=== PATIENT | female | born 1995 | race American Indian/Alaskan Native ===

== ENCOUNTER 2020-03-21 00:27 | Emergency (ER) | payer SELFPAY ==
[2020-03-21 00:52] VITALS: BP 137/85
== END 2020-03-21 00:40 | disposition left against medical advice (07) ==
LOC: ED 00:27
DX: Z53.21 Procedure and treatment not carried out due to patient leaving prior to being seen by health care provider (principal)

== ENCOUNTER 2020-04-04 15:20 | Emergency (ER) | payer SELFPAY ==
[2020-04-04] MEDS ORDERED: SODIUM CHLORIDE 0.9% 1000 ML 1,000 ML IV ONE ×2 (16:11→17:36)
[2020-04-04] MEDS ORDERED: ZIPRASIDONE MESYLATE 20 MG VIAL IM ONE (16:11)
[2020-04-04 16:58] LABS: Basophils % (Auto) 0.9 % (0.0-1.8); Eosinophils % (Auto) 0.3 % (0.0-4.3); Hemoglobin 15.1 gm/dl (10.1-14.3); Lymphocytes # (Auto) 1.6 K/mm3 (1.2-5.4); Mean Corpuscular HGB Conc 34 % (30-34); Mean Corpuscular Volume 97 fl (79-97); Monocytes # (Auto) 0.3 K/mm3 (0.0-0.8); Monocytes % (Auto) 8.1 % (0.0-7.3); Platelet Count 219 K/mm3 (140-440); Red Blood Count 4.66 M/mm3 (3.65-5.03); Red Cell Distribution Width 13.3 % (13.2-15.2)
[2020-04-04 17:12] LABS: BUN/Creatinine Ratio 9; Blood Urea Nitrogen 9 mg/dL (7-17); Calcium 10.3 mg/dL (8.4-10.2); Hemolysis Index 20
[2020-04-04 17:16] LABS: Bilirubin,Urine NEG (Negative); Blood,Urine NEG (Negative); Color,Urine Amber (Yellow); Mucus,Urine 3+ /HPF
[2020-04-04 17:17] LABS: Protein,Urine >500 mg/dL (Negative)
[2020-04-04 17:18] LABS: Amphetamine Screen,Urine PRESUMPTIVE NEGATIVE; Benzodiazepines Screen,Urine PRESUMPTIVE NEGATIVE; Cannabinoid Screen,Urine PRESUMPTIVE POSITIVE; Cocaine Screen,Urine PRESUMPTIVE NEGATIVE; Methadone Screen,Urine PRESUMPTIVE NEGATIVE; Opiate Screen,Urine PRESUMPTIVE NEGATIVE
[2020-04-04] MEDS ORDERED: LORazepam 2 MG/ML VIAL IV ONE (17:18)
[2020-04-04] MEDS ORDERED: cefTRIAXone/NS 1 GM/50 ML 1 GM/50 ML BAG IV ONE (17:36)
--- NOTE | 2020-04-04 17:50 | Emergency Department Report ---
ED Psych HPI - General Chief Complaint: Psych Stated Complaint: ALTERED MENTAL STATUS Time Seen by Provider: 04/04/20 16:11 Source: family, EMS Mode of arrival: Ambulatory Limitations: Altered Mental Status - History of Present Illness Initial Comments: This is a 25-year-old female with history of schizophrenia who is not taking medication for several weeks. She has altered mental status. She is not as talkative. She appears to just stares off. She has not eaten in 2 weeks. Patient's male significant other provided history at the bedside. Patient has not had consistent psychiatric care in 3 years. Patient cooperates In limited fashion. Patient's boyfriend can only recall Haldol as one of her psychotropic medications. MD Complaint: altered mental status -: Gradual, week(s) (2 weeks) Associated Psychiatric Symptoms: other (Abnormal behavior) History of same: Yes Quality: constant Improves With: none Worsens With: none Context: not taking psychiatric Associated Symptoms: other (My eating) Treatments Prior to Arrival: none - Related Data Home Medications Medication Instructions Recorded Confirmed Last Taken No Known Home Medications [No 04/06/20 04/06/20 Unknown Reported Home Medications] Allergies Allergy/AdvReac Type Severity Reaction Status Date / Time No Known Allergies Allergy Verified 04/06/20 11:23 ED Review of Systems ROS: Stated complaint: ALTERED MENTAL STATUS Other details as noted in HPI Comment: Unobtainable due to pts medical conditions (Altered mental status) ED Past Medical Hx - Past Medical History Previous Medical History?: Yes Additional medical history: Schizophrenia - Social History Smoking Status: Current Every Day Smoker Substance Use Type: Marijuana - Medications Home Medications: Home Medications Medication Instructions Recorded Confirmed Last Taken Type No Known Home Medications [No 04/06/20 04/06/20 Unknown History Reported Home Medications] ED Physical Exam - General Limitations: Other General appearance: alert, in no apparent distress, other (Patient will cooperate but moves slowly, she appears dazed, she will make eye contact.) - Head Head exam: Present: atraumatic, normocephalic - Eye Eye exam: Present: normal appearance - ENT ENT exam: Present: mucous membranes dry, other (No facial swelling no gum swelling no purulence or exudate in oropharynx) - Neck Neck exam: Present: normal inspection, full ROM - Respiratory Respiratory exam: Present: normal lung sounds bilaterally. Absent: respiratory distress, wheezes, rales, rhonchi - Cardiovascular Cardiovascular Exam: Present: regular rate, normal rhythm, normal heart sounds. Absent: systolic murmur, diastolic murmur, rubs, gallop - GI/Abdominal GI/Abdominal exam: Present: soft, normal bowel sounds. Absent: distended, tenderness, guarding, rebound - Extremities Exam Extremities exam: Present: normal inspection - Neurological Exam Neurological exam: Present: alert, oriented X3 - Psychiatric Psychiatric exam: Present: normal affect, normal mood - Skin Skin exam: Present: warm, dry, intact, normal color. Absent: rash ED Course Vital Signs 04/04/20 04/04/20 04/04/20 17:31 19:33 19:58 Temperature 97.2 F L Pulse Rate 112 H Respiratory 18 20 16 Rate Blood Pressure Blood Pressure 142/97 [Left] O2 Sat by Pulse 99 99 100 Oximetry 04/05/20 04/05/20 04/05/20 02:00 10:43 19:16 Temperature 98.1 F 97.8 F 98.0 F Pulse Rate 79 80 106 H Respiratory 15 20 18 Rate Blood Pressure 122/92 Blood Pressure 137/89 125/83 [Left] O2 Sat by Pulse 99 100 100 Oximetry 04/05/20 04/06/20 04/06/20 22:00 07:33 08:45 Temperature 97.5 F L Pulse Rate 98 H Respiratory 20 18 18 Rate Blood Pressure Blood Pressure 122/74 [Left] O2 Sat by Pulse 100 100 98 Oximetry 04/06/20 04/06/20 04/07/20 19:30 20:00 02:03 Temperature 98.7 F 97.6 F Pulse Rate 89 96 H Respiratory 18 16 18 Rate Blood Pressure Blood Pressure 135/94 109/78 [Left] O2 Sat by Pulse 98 99 99 Oximetry 04/07/20 04/07/20 04/08/20 08:31 19:36 02:25 Temperature 98.6 F 98.7 F 97.5 F L Pulse Rate 90 99 H 84 Respiratory 20 18 16 Rate Blood Pressure Blood Pressure 120/83 128/92 119/77 [Left] O2 Sat by Pulse 100 100 98 Oximetry 04/08/20 08:18 Temperature 98.3 F Pulse Rate 65 Respiratory 20 Rate Blood Pressure Blood Pressure 134/83 [Left] O2 Sat by Pulse 97 Oximetry ED Medical Decision Making - Lab Data Result diagrams: 04/04/20 16:41 04/04/20 16:41 Laboratory Results - last 24 hr 04/04/20 04/04/20 04/04/20 16:41 16:41 16:41 WBC 4.0 L RBC 4.66 Hgb 15.1 H Hct 45.0 H MCV 97 MCH 33 H MCHC 34 RDW 13.3 Plt Count 219 Lymph % (Auto) 39.0 H Mayes % (Auto) 8.1 H Eos % (Auto) 0.3 Baso % (Auto) 0.9 Lymph # (Auto) 1.6 Mayes # (Auto) 0.3 Eos # (Auto) 0.0 Baso # (Auto) 0.0 Seg Neutrophils % 51.7 Seg Neutrophils # 2.1 Sodium 139 Potassium 4.6 Chloride 97.2 L Carbon Dioxide 21 L Anion Gap 25 BUN 9 Creatinine 1.0 Estimated GFR > 60 BUN/Creatinine Ratio 9 Glucose 114 H Calcium 10.3 H TSH 1.540 HCG, Qual Urine Color Urine Turbidity Urine pH Ur Specific Preemption Urine Protein Urine Glucose (UA) Urine Ketones Urine Blood Urine Nitrite Urine Bilirubin Urine Urobilinogen Ur Leukocyte Esterase Urine WBC (Auto) Urine RBC (Auto) U Epithel Cells (Auto) Urine Mucus Salicylates Urine Opiates Screen Urine Methadone Screen Acetaminophen Ur Barbiturates Screen Ur Phencyclidine Scrn Ur Amphetamines Screen U Benzodiazepines Scrn Urine Cocaine Screen U Marijuana (THC) Screen Plasma/Serum Alcohol 04/04/20 04/04/20 04/04/20 16:41 16:41 16:41 WBC RBC Hgb Hct MCV MCH MCHC RDW Plt Count Lymph % (Auto) Mayes % (Auto) Eos % (Auto) Baso % (Auto) Lymph # (Auto) Mayes # (Auto) Eos # (Auto) Baso # (Auto) Seg Neutrophils % Seg Neutrophils # Sodium Potassium Chloride Carbon Dioxide Anion Gap BUN Creatinine Estimated GFR BUN/Creatinine Ratio Glucose Calcium TSH HCG, Qual Urine Color Urine Turbidity Urine pH Ur Specific Preemption Urine Protein Urine Glucose (UA) Urine Ketones Urine Blood Urine Nitrite Urine Bilirubin Urine Urobilinogen Ur Leukocyte Esterase Urine WBC (Auto) Urine RBC (Auto) U Epithel Cells (Auto) Urine Mucus Salicylates < 0.3 L Urine Opiates Screen Urine Methadone Screen Acetaminophen 5.0 L Ur Barbiturates Screen Ur Phencyclidine Scrn Ur Amphetamines Screen U Benzodiazepines Scrn Urine Cocaine Screen U Marijuana (THC) Screen Plasma/Serum Alcohol < 0.01 04/04/20 04/04/20 04/04/20 16:41 16:51 Unknown WBC RBC Hgb Hct MCV MCH MCHC RDW Plt Count Lymph % (Auto) Mayes % (Auto) Eos % (Auto) Baso % (Auto) Lymph # (Auto) Mayes # (Auto) Eos # (Auto) Baso # (Auto) Seg Neutrophils % Seg Neutrophils # Sodium Potassium Chloride Carbon Dioxide Anion Gap BUN Creatinine Estimated GFR BUN/Creatinine Ratio Glucose Calcium TSH HCG, Qual Negative Urine Color Betty Urine Turbidity Cloudy Urine pH 5.0 Ur Specific Preemption 1.025 Urine Protein >500 Urine Glucose (UA) Neg Urine Ketones 20 Urine Blood Neg Urine Nitrite Neg Urine Bilirubin Neg Urine Urobilinogen 2.0 Ur Leukocyte Esterase Mod Urine WBC (Auto) 88.0 H Urine RBC (Auto) 31.0 U Epithel Cells (Auto) 37.0 H Urine Mucus 3+ Salicylates Urine Opiates Screen Presumptive negative Urine Methadone Screen Presumptive negative Acetaminophen Ur Barbiturates Screen Presumptive negative Ur Phencyclidine Scrn Presumptive negative Ur Amphetamines Screen Presumptive negative U Benzodiazepines Scrn Presumptive negative Urine Cocaine Screen Presumptive negative U Marijuana (THC) Screen Presumptive positive Plasma/Serum Alcohol - EKG Data EKG shows normal: sinus rhythm, axis, intervals Rate: tachycardia - EKG Data 04/04/20 17:58 EKG obtained 1633 EKG interpreted by al Sinus tachycardia rate 110 bpm normal axis normal QTC no ST elevation diffuse T wave flattening - Medical Decision Making This is a 25-year-old female with history of schizophrenia noncompliant with medical occasion. She is exhibiting acute psychosis paranoia with response to internal stimuli. She has poor insight. She is a potential risk of further harm to herself. She has not eaten. Tachycardia attributed to agitation and dehydration. She received IV fluid therapy. I reviewed work-up CBC chemistry within normal limits. Serum toxicology within normal limits. UDS positive for marijuana. Urinalysis does not reflect UTI. It does reflect contamination with white cells and RBCs as well as epithelial cells. With the absence of bacteria or detections of nitrites, antibiotic therapy is not warranted. Patient is medically clear for psychiatric care. Patient has been placed on 1013 involuntary hold. EKG obtained to confirm normal rhythm. Critical care attestation.: If time is entered above; I have spent that time in minutes in the direct care of this critically ill patient, excluding procedure time. ED Disposition Clinical Impression: Acute psychosis, Schizophrenia, Dehydration Disposition: [id number] PSY HOSP/PSY UNIT Is pt being admited?: No Does the pt Need Aspirin: No Condition: Stable
--- NOTE | 2020-04-06 10:52 | Consultation ---
History of Present Illness - Reason for Consult Consult date: 04/06/20 Reason for consult: not eating, or talking - History of Present Psychiatric Illness I attempted to interview the patient this morning, she is sitting up in bed. She is staring intensely. Her affect is restricted. The patient is selectively mute. She answers some questions by nodding or shaking her head, others, she only stares and gives no response. When asking the patient what brought her into the hospital, she just gave at me. When asking the patient could she speak, she nodded her head "yes." When asking her was she depressed, she nodded "yes." When asking the patient was she suicidal, she shook her head "no." The patient was then asked was she having any fear of dying, she nodded "yes." The patient shook her head, "no" when asked about hallucinations of any kind. PSYCHIATRIC HISTORY The patient is not speaking SOCIAL HISTORY The patient is not speaking REVIEW OF SYSTEMS The patient is not speaking MENTAL STATUS EXAMINATION The patient is not speaking Assessment Schizoaffective Disorder Noncompliance with medical regimen and other treatments Failure of outpatient stabilization Plan Start Risperidone 0.25mg po BID Start Depakote DR 125mg po BID Start Trazodone 50mg po qhs Start Melatonin 5mg po qhs prn insomnia Start Klonopin 0.25mg po BID prn anxiety Sitter: Defer to primary Medical: Per primary Disposition: Recommend acute inpatient treatment Will follow. Thank you for this consult. Medications and Allergies Allergies Allergy/AdvReac Type Severity Reaction Status Date / Time No Known Allergies Allergy Verified 04/04/20 15:59 Mental Status Exam - Vital signs Last Vital Signs Temp 97.5 F L 04/06/20 08:45 Pulse 98 H 04/06/20 08:45 Resp 18 04/06/20 08:45 BP 122/74 04/06/20 08:45 Pulse Ox 98 04/06/20 08:45 Results Result Diagrams: 04/04/20 16:41 04/04/20 16:41 All other labs normal.
[2020-04-06] MEDS ORDERED: MELATONIN 5 MG TAB PO PRN (10:53)
[2020-04-06] MEDS ORDERED: clonazePAM 0.5 MG TAB PO PRN (10:54)
[2020-04-06] MEDS: risperiDONE 0.25 MG TAB PO SCH ×2 (11:22→23:29)
[2020-04-06] MEDS: DIVALPROEX DR 125 MG TAB PO SCH ×2 (12:14→23:28)
[2020-04-06] MEDS ORDERED: traZODone 50 MG TAB PO SCH (22:00)
[2020-04-06] MEDS ORDERED: traZODone 100 MG TAB PO ONE (23:15)
[2020-04-06] MEDS: traZODone 100 MG TAB PO SCH (23:31)
--- NOTE | 2020-04-07 07:49 | Progress Note ---
Subjective - Reason for Consult Consult date: 04/07/20 Reason for consult: MHE Requesting physician: ARIC HIDALGO - Chief Complaint Chief complaint: PSYCH HPI Patient seen this a.m. reported she is here because she needs medication for anxiety, ask what she is anxious about patient said because she worries a lot about nothing. Patient reports she had the [employer] take away her children because the child was found initially unresponsive and patient was laughing about this while talking about it. Patient started laughing hysterically without any known trigger patient says she because she is just happy, sometimes she is sad and she does not know why. REVIEW OF SYSTEMS Constitutional: Negative for weight loss ENT: Negative for stridor Respiratory: Negative for cough or hemoptysis All other systems reviewed and are negative MENTAL STATUS EXAMINATION General Appearance and Behavior: Age appropriate, fair good hygiene, wearing appropriate clothes, good eye contact, cooperative polite with questioning. Cooperation: Participating/engaged Psychomotor Behavior: unremarkable and within normal limits Mood: Good, Affect and affective range: euphoric, Thought Process: Illogical, Thought Content: Illogical, Speech: Normal volume, Regular rate and rhythm Intellectual Functioning: fair Suicidal Ideation: Denies SI Homicidal Ideation: Denies HI Impulse Control: Impaired Insight and Judgment: Impaired Memory: Short term memory intact Attention: Normal, Orientation: Alert, oriented, Diagnoses: Assessment and Plan - Patient Problems (1) Schizophrenia Current Visit: Yes Status: Acute Treatment Plan MEDICATIONS: Started on Olanzapine Risks, benefits and alternatives of medications discussed with the patient, questions answered and consent obtained from patient. PSYCHOTHERAPY: Supportive psychotherapy provided MEDICAL: Per primary team DELIRIUM PRECAUTIONS: Please re-orient patient frequently, keep lights on during the day, and minimize benzodiazepines and opiates as these medications could worsen patient's confusion. MA[employer]ACHT: DISPOSITION: Do Recommend acute inpatient psychiatric hospitalization at this time LEGAL STATUS: 1013 FOLLOW-UP: Will follow Thank you for the consult. Please contact with any questions and/or concerns. Mental Status Exam - Vital signs Last Vital Signs Temp 97.6 F 04/07/20 02:03 Pulse 96 H 04/07/20 02:03 Resp 18 04/07/20 02:03 BP 109/78 04/07/20 02:03 Pulse Ox 99 04/07/20 02:03 Assessment and Plan - Patient Problems (1) Schizophrenia Current Visit: Yes Status: Acute
[2020-04-07] MEDS: risperiDONE 0.25 MG TAB PO SCH (11:14)
[2020-04-07] MEDS: DIVALPROEX DR 125 MG TAB PO SCH ×2 (11:51→21:50)
[2020-04-07] MEDS: traZODone 100 MG TAB PO SCH (21:49)
[2020-04-08 08:19] VITALS: BP 134/83
[2020-04-08] MEDS: DIVALPROEX DR 125 MG TAB PO SCH (11:00)
[2020-04-08] MEDS ORDERED: DIVALPROEX DR 125 MG TAB PO SCH (11:25)
--- NOTE | 2020-04-08 11:25 | Progress Note ---
Subjective - Reason for Consult Consult date: 04/08/20 Reason for consult: MHE Requesting physician: ARIC HIDALGO - Chief Complaint Chief complaint: PSYCH HPI Patient seen this a.m. in room laying, refuses to get up or sit up to talk to me as she was laying down upside down. Patient appears very slow in response, endorses wanting to go back home to family, asked which family and patient never responded REVIEW OF SYSTEMS Constitutional: Negative for weight loss ENT: Negative for stridor Respiratory: Negative for cough or hemoptysis All other systems reviewed and are negative MENTAL STATUS EXAMINATION General Appearance and Behavior: Age appropriate, fair good hygiene, wearing appropriate clothes, good eye contact, cooperative polite with questioning. Cooperation: Participating/engaged Psychomotor Behavior: unremarkable and within normal limits Mood: Good, Affect and affective range: euphoric, Thought Process: Illogical, Thought Content: Illogical, Speech: Normal volume, Regular rate and rhythm Intellectual Functioning: fair Suicidal Ideation: Denies SI Homicidal Ideation: Denies HI Impulse Control: Impaired Insight and Judgment: Impaired Memory: Short term memory intact Attention: Normal, Orientation: Alert, oriented, Diagnoses: Assessment and Plan - Patient Problems (1) Schizophrenia Current Visit: Yes Status: Acute Treatment Plan MEDICATIONS: Started on Olanzapine Risks, benefits and alternatives of medications discussed with the patient, questions answered and consent obtained from patient. PSYCHOTHERAPY: Supportive psychotherapy provided MEDICAL: Per primary team DELIRIUM PRECAUTIONS: Please re-orient patient frequently, keep lights on during the day, and minimize benzodiazepines and opiates as these medications could worsen patient's confusion. TAX SERVICES SPECIALIST: DISPOSITION: Do Recommend acute inpatient psychiatric hospitalization at this time LEGAL STATUS: 1013 FOLLOW-UP: Will follow Thank you for the consult. Please contact with any questions and/or concerns. Mental Status Exam - Vital signs Last Vital Signs Temp 98.3 F 04/08/20 08:18 Pulse 65 04/08/20 08:18 Resp 20 04/08/20 08:18 BP 134/83 04/08/20 08:18 Pulse Ox 97 04/08/20 08:18 Assessment and Plan - Patient Problems (1) Schizophrenia Status: Acute
== END 2020-04-08 15:33 ==
LOC: ED 15:20
DX: F20.89 Other schizophrenia (principal); F23 Brief psychotic disorder; F17.200 Nicotine dependence, unspecified, uncomplicated; F12.10 Cannabis abuse, uncomplicated
CPT/HCPCS: 36415; 80048; 80307; 81001; 84443; 84703; 85025; 87086; 93005; 96361; 96372; 96374; 99285; J2060; J3486; J7030; Q0177; 80320; G0480

== ENCOUNTER 2020-05-03 07:08 | Emergency (ER) | payer MEDICAID | END 2020-05-03 07:45 | disposition left against medical advice (07) | LOC: ED 07:08 | DX: Z76.0 Encounter for issue of repeat prescription (principal); Z53.21 Procedure and treatment not carried out due to patient leaving prior to being seen by health care provider ==

== ENCOUNTER 2021-01-16 11:06 | Emergency (ER) | payer MEDICAID ==
[2021-01-23 04:52] VITALS: BP 123/75
== END 2021-01-23 17:00 | disposition home or self-care (01) ==
LOC: EEVIPCON 11:06 → ED 11:06
DX: F20.9 Schizophrenia, unspecified (principal); Z03.818 Encounter for observation for suspected exposure to other biological agents ruled out; R82.81 Pyuria; F17.200 Nicotine dependence, unspecified, uncomplicated; F12.10 Cannabis abuse, uncomplicated
CPT/HCPCS: 36415; 80048; 80076; 80307; 81001; 84703; 85007; 85025; 87086; 96372; 99284; J1630; J2060; U0003; 80320; G0480

== ENCOUNTER 2021-04-19 08:57 | Emergency (ER) | payer MEDICAID ==
--- NOTE | 2021-04-19 09:23 | Emergency Department Report ---
HPI - General Chief Complaint: Anxiety Time Seen by Provider: 04/19/21 09:06 - HPI HPI: 25-year-old -Finnish female presents to the emergency department via EMS for a mental health evaluation. The patient has a history of schizophrenia and was seen here about 3 months ago with acute psychosis and mutism. The patient says that she came into the emergency department today due to some anxiety and after having "a fight with my boyfriend." Some of her story does not make sense as she says that the boyfriend called for EMS and that her aunt told him to do so. She says that the aunt came to see her when she called her after the argument. However the patient also says that she is homeless and slept in a car with her boyfriend last night and that her home is in [place]. However the patient denies any suicidal or homicidal ideations or any hallucinations. She is oriented, AAO x3, to person, place, time. She denies any physical co mplaints at this time. ED Past Medical Hx - Past Medical History Previous Medical History?: Yes Hx Psychiatric Treatment: Yes (schizophrenia) Additional medical history: Schizophrenia - Social History Smoking Status: Current Every Day Smoker Substance Use Type: Alcohol, Marijuana - Medications Home Medications: Home Medications Medication Instructions Recorded Confirmed Last Taken Type Benztropine [Cogentin] 0.5 mg PO BID #60 tab 01/23/21 04/19/[address] [Charity COHEN] 500 mg PO BID #60 tablet 01/23/21 04/19/21 Unknown Rx haloperidoL [Haldol] 1 mg PO BID #60 tablet 01/23/21 04/19/21 Unknown Rx traZODone [Desyrel] 50 mg PO QHS #30 tab 01/23/21 04/19/21 Unknown Rx haloperidoL [Haldol] 5 mg PO BID #60 tablet 04/19/21 Unknown Rx ED Review of Systems ROS: Stated complaint: PSYCH EVAL Other details as noted in HPI Comment: All other systems reviewed and negative Constitutional: denies: chills, fever Eyes: denies: eye pain, vision change ENT: denies: ear pain, throat pain Respiratory: denies: cough, shortness of breath Cardiovascular: denies: chest pain, palpitations Gastrointestinal: denies: abdominal pain, vomiting Genitourinary: denies: dysuria, discharge Musculoskeletal: denies: back pain, arthralgia Neurological: denies: headache, weakness Psychiatric: denies: auditory hallucinations, visual hallucinations, homicidal thoughts, suicidal thoughts Physical Exam - Physical Exam Physical Exam: GENERAL: The patient is well-developed well-nourished. HENT: Normocephalic. Atraumatic. Patient has moist mucous membranes. EYES: Extraocular motions are intact. NECK: Supple. Trachea is midline. CHEST/LUNGS: Clear to auscultation. There is no respiratory distress noted. HEART/CARDIOVASCULAR: Regular. There is no tachycardia. There is no murmur. ABDOMEN: Abdomen is soft, nontender. Patient has normal bowel sounds. SKIN: Skin is warm and dry. NEURO: The patient is awake, alert, and cooperative. The patient has no focal neurologic deficits. Normal speech. MUSCULOSKELETAL: There is no tenderness or deformity. There is no limitation range of motion. ED Medical Decision Making - Lab Data Result diagrams: 04/19/21 09:54 04/19/21 09:54 Lab Results 04/19/21 04/19/21 04/19/21 Range/Units 09:54 09:54 09:54 WBC 3.7 L (4.5-11.0) K/mm3 RBC 4.70 (3.65-5.03) M/mm3 Hgb 14.8 H (10.1-14.3) gm/dl Hct 44.4 H (30.3-42.9) % MCV 95 (79-97) fl MCH 32 (28-32) pg MCHC 33 (30-34) % RDW 13.2 (13.2-15.2) % Plt Count 283 (140-440) K/mm3 Lymph % (Auto) 48.3 H (13.4-35.0) % [place] % (Auto) 10.4 H (0.0-7.3) % Eos % (Auto) 1.3 (0.0-4.3) % Baso % (Auto) 0.7 (0.0-1.8) % Lymph # (Auto) 1.8 (1.2-5.4) K/mm3 [place] # (Auto) 0.4 (0.0-0.8) K/mm3 Eos # (Auto) 0.0 (0.0-0.4) K/mm3 Baso # (Auto) 0.0 (0.0-0.1) K/mm3 Seg Neutrophils % 39.3 L (40.0-70.0) % Seg Neutrophils # 1.5 L (1.8-7.7) K/mm3 Sodium 137 (137-145) mmol/L Potassium 4.6 (3.6-5.0) mmol/L Chloride 100.3 (98-107) mmol/L Carbon Dioxide 27 (22-30) mmol/L Anion Gap 14 mmol/L BUN 7 (7-17) mg/dL Creatinine 0.7 (0.6-1.2) mg/dL Estimated GFR > 60 ml/min BUN/Creatinine Ratio 10 % Glucose 88 (65-100) mg/dL Calcium 9.5 (8.4-10.2) mg/dL Urine Color (Yellow) Urine Turbidity (Clear) Urine pH (5.0-7.0) Ur Specific [place] (1.003-1.030) Urine Protein (Negative) mg/dL Urine Glucose (UA) (Negative) mg/dL Urine Ketones (Negative) mg/dL Urine Blood (Negative) Urine Nitrite (Negative) Urine Bilirubin (Negative) Urine Urobilinogen (<2.0) mg/dL Ur Leukocyte Esterase (Negative) Urine WBC (Auto) (0.0-6.0) /HPF Urine RBC (Auto) (0.0-6.0) /HPF U Epithel Cells (Auto) (0-13.0) /HPF Urine Bacteria (Auto) (Negative) /HPF Urine Mucus /HPF Urine Opiates Screen Urine Methadone Screen Ur Barbiturates Screen Ur Phencyclidine Scrn Ur Amphetamines Screen U Benzodiazepines Scrn Urine Cocaine Screen U Marijuana (THC) Screen Drugs of Abuse Note Plasma/Serum Alcohol < 0.01 (0-0.07) % 04/19/21 04/19/21 Range/Units Unknown Unknown WBC (4.5-11.0) K/mm3 RBC (3.65-5.03) M/mm3 Hgb (10.1-14.3) gm/dl Hct (30.3-42.9) % MCV (79-97) fl MCH (28-32) pg MCHC (30-34) % RDW (13.2-15.2) % Plt Count (140-440) K/mm3 Lymph % (Auto) (13.4-35.0) % [place] % (Auto) (0.0-7.3) % Eos % (Auto) (0.0-4.3) % Baso % (Auto) (0.0-1.8) % Lymph # (Auto) (1.2-5.4) K/mm3 [place] # (Auto) (0.0-0.8) K/mm3 Eos # (Auto) (0.0-0.4) K/mm3 Baso # (Auto) (0.0-0.1) K/mm3 Seg Neutrophils % (40.0-70.0) % Seg Neutrophils # (1.8-7.7) K/mm3 Sodium (137-145) mmol/L Potassium (3.6-5.0) mmol/L Chloride (98-107) mmol/L Carbon Dioxide (22-30) mmol/L Anion Gap mmol/L BUN (7-17) mg/dL Creatinine (0.6-1.2) mg/dL Estimated GFR ml/min BUN/Creatinine Ratio % Glucose (65-100) mg/dL Calcium (8.4-10.2) mg/dL Urine Color Yellow (Yellow) Urine Turbidity Clear (Clear) Urine pH 7.0 (5.0-7.0) Ur Specific [place] 1.019 (1.003-1.030) Urine Protein <15 mg/dl (Negative) mg/dL Urine Glucose (UA) Neg (Negative) mg/dL Urine Ketones Neg (Negative) mg/dL Urine Blood Neg (Negative) Urine Nitrite Neg (Negative) Urine Bilirubin Neg (Negative) Urine Urobilinogen < 2.0 (<2.0) mg/dL Ur Leukocyte Esterase Tr (Negative) Urine WBC (Auto) 18.0 H (0.0-6.0) /HPF Urine RBC (Auto) 2.0 (0.0-6.0) /HPF U Epithel Cells (Auto) 16.0 H (0-13.0) /HPF Urine Bacteria (Auto) 1+ (Negative) /HPF Urine Mucus Few /HPF Urine Opiates Screen Negative Urine Methadone Screen Negative Ur Barbiturates Screen Negative Ur Phencyclidine Scrn Negative Ur Amphetamines Screen Negative U Benzodiazepines Scrn Negative Urine Cocaine Screen Negative U Marijuana (THC) Screen Positive Drugs of Abuse Note Disclamer Plasma/Serum Alcohol (0-0.07) % - Medical Decision Making This patient presents to the emergency department for a mental health evaluation. She admits to some anxiety and being out of her medication. She denies any suicidal or homicidal ideations or any hallucinations. The patient does not appear to be someone who requires inpatient stabilization. Labs have been mostly unremarkable including CBC, metabolic panel, blood alcohol level, UDS. Urinalysis did show 18 white blood cells, but there were also 16 epithelial cells showing a contaminated specimen. There was no significant leukocyte esterase or nitrites and this does not appear consistent with a urinary tract infection. On top of that, the patient denies any dysuria or urinary symptoms. She was seen by the psychiatric nurse practitioner who agrees that the patient does not appear to be a candidate to be made a 1013 or require inpatient stabilization. She has been given a refill of her Haldol and outpatient referrals. Critical Care Time: No Critical care attestation.: If time is entered above; I have spent that time in minutes in the direct care of this critically ill patient, excluding procedure time. ED Disposition Clinical Impression: Anxiety, History of schizophrenia Disposition: HOME / SELF CARE / HOMELESS Is pt being admited?: No Condition: Stable Instructions: Schizophrenia, Managing Anxiety, Adult Additional Instructions: Please follow-up with your primary care physician and/or psychiatrist. Take all of your medications as prescribed. Try to avoid any alcohol or illicit drug use. Return to the emergency department with any worsening of your symptoms, thoughts of harming yourself or others, or with any acute distress. OUTPATIENT MENTAL HEALTH RESOURCES [facility], [facility] Argelia Ulloa MD: [address] [place] [address] [facility] [address] [place] [address] [place], [place] [id number] [facility]: [facility] [address] [place] [address] [place] [address] [phone] [facility]: [facility] Healthcare: [address] [place] [address] [address] [facility] [place] [address] [place] [id number] [facility]: Doug Fagan MD: [address] [facility] [address] [place], [place] [address] [facility]: [address] [place] [phone] [place] CRISIS AND ACCESS LINE: Prescriptions: haloperidoL [Haldol] 5 mg PO BID #60 tablet Referrals: PRIMARY CARE, [Primary Care Provider] - 3-5 Days [facility] [Outside] - 3-5 Days Time of Disposition: 11:51
[2021-04-19 10:14] LABS: Basophils % (Auto) 0.7 % (0.0-1.8); Eosinophils % (Auto) 1.3 % (0.0-4.3); Hematocrit 44.4 % (30.3-42.9); Hemoglobin 14.8 gm/dl (10.1-14.3); Lymphocytes # (Auto) 1.8 K/mm3 (1.2-5.4); Lymphocytes % (Auto) 48.3 % (13.4-35.0); Mean Corpuscular HGB Conc 33 % (30-34); Mean Corpuscular Volume 95 fl (79-97); Monocytes # (Auto) 0.4 K/mm3 (0.0-0.8); Monocytes % (Auto) 10.4 % (0.0-7.3); Platelet Count 283 K/mm3 (140-440); Red Cell Distribution Width 13.2 % (13.2-15.2)
[2021-04-19 10:41] LABS: Blood Urea Nitrogen 7 mg/dL (7-17); Calcium 9.5 mg/dL (8.4-10.2); Hemolysis Index 46
[2021-04-19 10:41] LABS: Amphetamine Screen,Urine Negative; Benzodiazepines Screen,Urine Negative; Cocaine Screen,Urine Negative; Methadone Screen,Urine Negative; Opiate Screen,Urine Negative
[2021-04-19 10:48] LABS: BUN/Creatinine Ratio 10
[2021-04-19 10:54] LABS: Bacteria,Urine 1+ /HPF (Negative); Bilirubin,Urine NEG (Negative); Blood,Urine NEG (Negative); Color,Urine Yellow (Yellow); Mucus,Urine FEW /HPF; Protein,Urine <15 mg/dL mg/dL (Negative); Urobilinogen,Urine < 2.0 mg/dL (<2.0)
[2021-04-19 11:26] LABS: Cannabinoid Screen,Urine Positive
--- NOTE | 2021-04-19 11:34 | Consultation ---
History of Present Illness - Reason for Consult Consult date: 04/19/21 Reason for consult: anxiety - History of Present Psychiatric Illness Renee Chacon is a 25y/o female patient who presented to the hospital stating anxiety. I evaluated the patient today. She says her boyfriend brought her because he thought she wasn't taking her medication. She says they had an argument. When asking the patient why did her boyfriend think she wasn't taking them, she replied "I don't know." She then told me I could call him. I tried phoning her boyfriend at the number Renee gave me but did not get an answer. The patient then says she ran out of her medication and needed a prescription. She says she takes Haldol 5mg twice a day. She denies SI/HI or hallucinations of any kind. The patient is quiet. I ask her was she always quiet, she says "I don't like to talk." The patient denies any illicit drug use. She says she sleeps in her car with her boyfriend. I asked if her family had put her out, she replies "no they didn't put me out. I just stay with my boyfriend." The patient denies any problems with her sleep cycle or appetite. She states she is hungry during the evaluation. PAST PSYCHIATRIC HISTORY: Diagnoses: Schizophrenia Suicide attempts or Self-harm behavior: Denies Prior psychiatric hospitalizations: Yes Substance Abuse history: Denies Previous psychiatric medications tried: Haldol Outpatient treatment: Yes PAST MEDICAL HISTORY: None reported or document Family Psychiatric History: None reported or documented SOCIAL HISTORY Marital Status: Single Living Arrangements: homeless Employment Status: Disabled Access to guns/weapons: Denies Education: History of Abuse:Yes Legal History: Denies REVIEW OF SYSTEMS Constitutional: Negative for weight loss ENT: Negative for stridor Respiratory: Negative for cough or hemoptysis All other systems reviewed and are negative MENTAL STATUS EXAMINATION General Appearance and Behavior: Age appropriate, good hygiene, wearing appropriate clothes. Cooperation: cooperative Psychomotor Behavior: Psychomotor normal Mood: okay Affect and affective range: congruent with stated mood Thought Process: circumstantial Thought Content: None Speech: Normal volume, Regular rate and rhythm Suicidal Ideation: Denies Homicidal Ideation: Denies Hallucinations: Denies Delusions: None elicited Impulse Control: Unimpaired Insight and Judgment: Limited Memory: limited Attention: Distractible Orientation: alert and oriented Assessment and Plan (1) Schizophrenia Current Visit: Yes Status: Acute Treatment Plan Haldol 5mg po BID Medical: per primary Disposition: Do not recommend acute psychiatric inpatient treatment. Explained to the patient that if SI/HI or any fear of endangerment arise she should return to the ER. She verbalizes understanding. The automobile designer to give the patient all necessary resources Will sign off. Thanks Case staffed with Dr. Mosley Medications and Allergies Allergies Allergy/AdvReac Type Severity Reaction Status Date / Time No Known Allergies Allergy Verified 04/06/20 11:23 Home Medications Medication Instructions Recorded Confirmed Last Taken Type Benztropine [Cogentin] 0.5 mg PO BID #60 tab 01/23/21 04/19/[address] [DepaKOTE DR] 500 mg PO BID #60 tablet 01/23/21 04/19/21 Unknown Rx haloperidoL [Haldol] 1 mg PO BID #60 tablet 01/23/21 04/19/21 Unknown Rx traZODone [Desyrel] 50 mg PO QHS #30 tab 01/23/21 04/19/21 Unknown Rx haloperidoL [Haldol] 5 mg PO BID #60 tablet 04/19/21 Unknown Rx Mental Status Exam - Vital signs Last Vital Signs Temp Pulse Resp 18 04/19/21 09:36 BP Pulse Ox 99 04/19/21 09:36 Results Result Diagrams: 04/19/21 09:54 04/19/21 09:54 Abnormal lab results 04/19/21 04/19/21 Range/Units 09:54 Unknown WBC 3.7 L (4.5-11.0) K/mm3 Hgb 14.8 H (10.1-14.3) gm/dl Hct 44.4 H (30.3-42.9) % Lymph % (Auto) 48.3 H (13.4-35.0) % [place] % (Auto) 10.4 H (0.0-7.3) % Seg Neutrophils % 39.3 L (40.0-70.0) % Seg Neutrophils # 1.5 L (1.8-7.7) K/mm3 Urine WBC (Auto) 18.0 H (0.0-6.0) /HPF U Epithel Cells (Auto) 16.0 H (0-13.0) /HPF All other labs normal.
[2021-04-19 15:48] VITALS: BP 126/72
== END 2021-04-19 12:17 | disposition home or self-care (01) ==
LOC: ED 08:57
DX: F41.9 Anxiety disorder, unspecified (principal); F20.9 Schizophrenia, unspecified; F17.200 Nicotine dependence, unspecified, uncomplicated; F10.20 Alcohol dependence, uncomplicated; F12.90 Cannabis use, unspecified, uncomplicated
CPT/HCPCS: 36415; 80048; 80307; 80320; 81001; 85025; 87086; 99284; G0480

== ENCOUNTER 2021-08-15 09:18 | Emergency (ER) | payer MEDICAID | END 2021-08-15 13:36 | disposition left against medical advice (07) | LOC: ED 09:18 | DX: Z76.0 Encounter for issue of repeat prescription (principal); Z53.21 Procedure and treatment not carried out due to patient leaving prior to being seen by health care provider ==

== ENCOUNTER 2021-08-19 19:22 | Emergency (ER) | payer MEDICAID ==
[2021-08-19 20:20] VITALS: BP 161/100
== END 2021-08-19 21:00 | disposition left against medical advice (07) ==
LOC: ED 19:22
DX: R25.1 Tremor, unspecified (principal); Z53.21 Procedure and treatment not carried out due to patient leaving prior to being seen by health care provider

== ENCOUNTER 2021-08-25 20:24 | Emergency (ER) | payer MEDICAID ==
[2021-08-25] MEDS ORDERED: ZIPRASIDONE MESYLATE 20 MG VIAL IM ONE (20:30)
--- NOTE | 2021-08-25 20:42 | Emergency Department Report ---
ED Psych HPI - General Stated Complaint: psychosis Time Seen by Provider: 08/25/21 20:35 Source: police - History of Present Illness Initial Comments: Patient is unknown age, unknown medical or psychiatric problem at this moment. Patient brought to the emergency room handcuffed by police. Patient found screaming and walking naked in [facility]. Patient is very agitated. Patient had to be chemically restrained with Geodon 20 mg IM. Unable to provide any more information at this moment. Complaint: altered mental status - Related Data Home Medications Medication Instructions Recorded Confirmed Last Taken Haldol 5 mg PO BID 08/26/21 08/26/21 Unknown Prozac 20 mg PO DAILY 08/26/21 08/26/21 Unknown Previous Rx's Medication Instructions Recorded Last Taken Type Benztropine [Cogentin] 0.5 mg PO BID #60 tab 01/23/[address] [Charity COHEN] 500 mg PO BID #60 tablet 01/23/21 Unknown Rx haloperidoL [Haldol] 1 mg PO BID #60 tablet 01/23/21 Unknown Rx traZODone [Desyrel] 50 mg PO QHS #30 tab 01/23/21 Unknown Rx haloperidoL [Haldol] 5 mg PO BID #60 tablet 04/19/21 Unknown Rx Allergies Allergy/AdvReac Type Severity Reaction Status Date / Time haloperidol [From Haldol] AdvReac Vomiting Verified 08/27/21 15:10 ED Review of Systems ROS: Stated complaint: psychosis Other details as noted in HPI Comment: Unobtainable due to pts medical conditions ED Past Medical Hx - Medications Home Medications: Home Medications Medication Instructions Recorded Confirmed Last Taken Type Benztropine [Cogentin] 0.5 mg PO BID #60 tab 01/23/21 04/19/21 Unknown Rx Divalproex [Charity COHEN] 500 mg PO BID #60 tablet 01/23/21 04/19/21 Unknown Rx haloperidoL [Haldol] 1 mg PO BID #60 tablet 01/23/21 04/19/21 Unknown Rx traZODone [Desyrel] 50 mg PO QHS #30 tab 01/23/21 04/19/21 Unknown Rx haloperidoL [Haldol] 5 mg PO BID #60 tablet 04/19/21 Unknown Rx Haldol 5 mg PO BID 08/26/21 08/26/21 Unknown History Prozac 20 mg PO DAILY 08/26/21 08/26/21 Unknown History ED Physical Exam - General General appearance: alert, in no apparent distress, other (Severely agitated.) - Head Head exam: Present: atraumatic, normocephalic, normal inspection - Eye Eye exam: Present: normal appearance - Neck Neck exam: Present: normal inspection - Respiratory Respiratory exam: Present: normal lung sounds bilaterally - Cardiovascular Cardiovascular Exam: Present: regular rate, normal rhythm, normal heart sounds - GI/Abdominal GI/Abdominal exam: Present: soft, normal bowel sounds. Absent: distended, tenderness, guarding, rebound, rigid, organomegaly, mass, bruit, pulsatile mass, hernia - Extremities Exam Extremities exam: Present: normal inspection, full ROM, normal capillary refill - Back Exam Back exam: Present: normal inspection, full ROM. Absent: CVA tenderness (R), CVA tenderness (L) - Neurological Exam Neurological exam: Present: alert - Psychiatric Psychiatric exam: Present: agitated, manic - Skin Skin exam: Present: warm, intact, normal color ED Course Vital Signs 08/26/21 08/26/21 08/26/21 03:14 10:24 17:21 Temperature 97.4 F L 97.6 F Pulse Rate 68 79 Respiratory 16 16 Rate Blood Pressure 164/112 Blood Pressure 164/112 132/79 [Right] O2 Sat by Pulse 100 100 100 Oximetry 08/26/21 08/27/21 08/27/21 20:29 10:20 17:52 Temperature 98.6 F 97.6 F Pulse Rate 87 82 69 Respiratory 18 20 18 Rate Blood Pressure Blood Pressure 115/71 139/90 151/94 [Right] O2 Sat by Pulse 98 99 100 Oximetry 08/27/21 17:54 Temperature Pulse Rate Respiratory Rate Blood Pressure Blood Pressure [Right] O2 Sat by Pulse 98 Oximetry ED Medical Decision Making - Lab Data Result diagrams: 08/26/21 06:36 08/26/21 06:36 Critical care attestation.: If time is entered above; I have spent that time in minutes in the direct care of this critically ill patient, excluding procedure time. ED Disposition Clinical Impression: Acute psychosis Disposition: [address] [place] [address] Is pt being admited?: No Condition: Stable Referrals: PRIMARY CARE, [Primary Care Provider] - 3-5 Days
--- NOTE | 2021-08-26 06:46 | Emergency Department Report ---
Blank Doc - Documentation Documentation: This morning, the patient is improving. She is calm and cooperative. She has given the nurses her name and birthdate that we are trying to verify. Until that can be verified, she will be maintained under this name and medical record number. She states that she really does not remember what happened. She tells me that she remembers coming to the hospital but then cannot tell me any more events. She does not know why she was here. She does not know who called an ambulance or police. She really has no recollection of the events. She is asking for something to eat and requesting to be released so she can go home. We still need to evaluate her laboratory results. They have not been sent. The nursing staff and laboratory staff are trying to obtain blood at this time. If she is medically and psychiatrically cleared, she would be able to go home. We are still in this process.
[2021-08-26 07:21] LABS: Basophils % (Auto) 0.6 % (0.0-1.8); Eosinophils % (Auto) 0.6 % (0.0-4.3); Hematocrit 35.8 % (30.3-42.9); Hemoglobin 12.9 gm/dl (10.1-14.3); Lymphocytes # (Auto) 1.9 K/mm3 (1.2-5.4); Lymphocytes % (Auto) 27.5 % (13.4-35.0); Mean Corpuscular HGB Conc 36 % (30-34); Mean Corpuscular Volume 95 fl (79-97); Monocytes # (Auto) 0.7 K/mm3 (0.0-0.8); Monocytes % (Auto) 10.6 % (0.0-7.3); Platelet Count 248 K/mm3 (140-440); Red Blood Count 3.78 M/mm3 (3.65-5.03); Red Cell Distribution Width 14.4 % (13.2-15.2)
[2021-08-26 07:50] LABS: Blood Urea Nitrogen 5 mg/dL (7-17); Calcium 9.5 mg/dL (8.4-10.2); Hemolysis Index 5
[2021-08-26 08:00] LABS: BUN/Creatinine Ratio 7
--- NOTE | 2021-08-26 09:52 | Consultation ---
History of Present Illness - Reason for Consult Consult date: 08/26/21 Reason for consult: agitation - History of Present Psychiatric Illness HPI: Patient is unknown age, unknown medical or psychiatric problem at this moment. Patient brought to the emergency room handcuffed by police. Patient found screaming and walking naked in [facility]. Patient is very agitated. Patient had to be chemically restrained with Geodon 20 mg IM. Unable to provide any more information at this moment. The patient was seen today. She is in the observation room. I have to call her several times to get her to arouse. She just stares at me blankly and doesn't respond to any questions. REVIEW OF SYSTEMS Unable to obtain MENTAL STATUS EXAMINATION Unable to obtain Assessment and Plan (1) Schizophrenia Current Visit: Yes Status: Acute Treatment Plan 1013 Haldol 5mg po BID Medical: per primary Disposition: recommend acute psychiatric inpatient treatment. Will follow. Thanks Case staffed with Dr. Mosley Medications and Allergies Allergies Allergy/AdvReac Type Severity Reaction Status Date / Time No Known Allergies Allergy Verified 08/26/21 03:24 Mental Status Exam - Vital signs Last Vital Signs Temp 97.4 F L 08/26/21 03:14 Pulse 68 08/26/21 03:14 Resp 16 08/26/21 03:14 BP 164/112 08/26/21 03:14 Pulse Ox 100 08/26/21 03:14 Results Result Diagrams: 08/26/21 06:36 08/26/21 06:36 Abnormal lab results 08/26/21 08/26/21 08/26/21 Range/Units 06:36 06:36 06:36 MCH 34 H (28-32) pg MCHC 36 H (30-34) % [place] % (Auto) 10.6 H (0.0-7.3) % BUN 5 L (7-17) mg/dL Salicylates < 0.3 L (2.8-20.0) mg/dL Acetaminophen (10.0-30.0) ug/mL 08/26/21 Range/Units 06:36 MCH (28-32) pg MCHC (30-34) % [place] % (Auto) (0.0-7.3) % BUN (7-17) mg/dL Salicylates (2.8-20.0) mg/dL Acetaminophen 5.0 L (10.0-30.0) ug/mL All other labs normal.
[2021-08-26 10:21] LABS: Bilirubin,Urine NEG (Negative); Blood,Urine NEG (Negative); Color,Urine Yellow (Yellow); Mucus,Urine 3+ /HPF
[2021-08-26] MEDS: HALOPERIDOL 5 MG TAB PO SCH ×2 (10:22→21:46)
[2021-08-26 10:28] LABS: Amphetamine Screen,Urine Negative; Benzodiazepines Screen,Urine Negative; Cocaine Screen,Urine Negative; Methadone Screen,Urine Negative; Opiate Screen,Urine Negative
[2021-08-26 10:44] LABS: Cannabinoid Screen,Urine Positive
[2021-08-26] MEDS ORDERED: DOXEPIN 10 MG CAP PO SCH (22:00)
[2021-08-27] MEDS: HALOPERIDOL 5 MG TAB PO SCH (09:35)
--- NOTE | 2021-08-27 11:17 | Progress Note ---
Subjective - Reason for Consult Consult date: 08/27/21 Reason for consult: Mental health evaluation - Chief Complaint Chief complaint: The patient was seen today. she states she is doing well. The patient presents with confusion; she is unable to state why she is here. She denies suicidal/homicidal ideation and denies hallucinations. REVIEW OF SYSTEMS Unable to obtain MENTAL STATUS EXAMINATION Unable to obtain Assessment and Plan (1) Schizophrenia Current Visit: Yes Status: Acute Treatment Plan 1013 Haldol 5mg po daily Doxepin 10mg po QHS Medical: per primary Disposition: recommend acute psychiatric inpatient treatment. Will follow. Thanks Case staffed with Dr. Mosley Medications and Allergies Allergies Mental Status Exam - Vital signs Last Vital Signs Temp 97.6 F 08/27/21 10:20 Pulse 82 08/27/21 10:20 Resp 20 08/27/21 10:20 BP 139/90 08/27/21 10:20 Pulse Ox 99 08/27/21 10:20
--- NOTE | 2021-08-27 11:25 | Emergency Department Report ---
Blank Doc - Documentation Documentation: Patient has been medically cleared. She has been seen by psychiatric services and we are planning a psychiatric admission. We continue to await placement.
[2021-08-27 17:53] VITALS: BP 151/94
== END 2021-08-27 17:57 ==
LOC: ED 20:24 → MERGE 20:24 → ED 08-27 17:57
DX: F23 Brief psychotic disorder (principal); Z79.899 Other long term (current) drug therapy; Z20.822 Contact with and (suspected) exposure to COVID-19
CPT/HCPCS: 36415; 80048; 80307; 81001; 84703; 85025; 96372; 99285; J3486; U0003; 80320; G0480

== ENCOUNTER 2021-10-15 17:41 | Emergency (ER) | payer MEDICAID ==
--- NOTE | 2021-10-15 22:28 | Emergency Department Report ---
ED General Adult HPI - General Chief complaint: Altered Mental Status Stated complaint: AMS Time Seen by Provider: 10/15/21 18:21 Source: patient, EMS Mode of arrival: Stretcher Limitations: Altered Mental Status - History of Present Illness Initial comments: 26 years old with H.O of psychosis and OD , here for MH evaluation was found by police and was found to be confused , brought in for MH eval, she is refusing blood work and refusing ot talk to escobar awake and alert but not reponding to us -: days(s) Associated Symptoms: denies: confusion Treatments Prior to Arrival: none - Related Data Home Medications Medication Instructions Recorded Confirmed Last Taken Haldol 5 mg PO BID 08/26/21 08/26/21 Unknown Prozac 20 mg PO DAILY 08/26/21 08/26/21 Unknown Previous Rx's Medication Instructions Recorded Last Taken Type Benztropine [Cogentin] 0.5 mg PO BID #60 tab 01/23/21 Unknown Rx Divalproex [Charity COHEN] 500 mg PO BID #60 tablet 01/23/21 Unknown Rx haloperidoL [Haldol] 1 mg PO BID #60 tablet 01/23/21 Unknown Rx traZODone [Desyrel] 50 mg PO QHS #30 tab 01/23/21 Unknown Rx haloperidoL [Haldol] 5 mg PO BID #60 tablet 04/19/21 Unknown Rx Allergies Allergy/AdvReac Type Severity Reaction Status Date / Time haloperidol [From Haldol] AdvReac Vomiting Verified 08/27/21 15:10 ED Review of Systems ROS: Stated complaint: AMS Other details as noted in HPI Comment: Unobtainable due to pts medical conditions ED Past Medical Hx - Past Medical History Previous Medical History?: Yes Hx Psychiatric Treatment: Yes (schizophrenia) Additional medical history: Schizophrenia - Social History Smoking Status: Unknown if ever smoked - Medications Home Medications: Home Medications Medication Instructions Recorded Confirmed Last Taken Type Benztropine [Cogentin] 0.5 mg PO BID #60 tab 01/23/21 04/19/21 Unknown Rx Divalproex [Charity COHEN] 500 mg PO BID #60 tablet 01/23/21 04/19/21 Unknown Rx haloperidoL [Haldol] 1 mg PO BID #60 tablet 01/23/21 04/19/21 Unknown Rx traZODone [Desyrel] 50 mg PO QHS #30 tab 01/23/21 04/19/21 Unknown Rx haloperidoL [Haldol] 5 mg PO BID #60 tablet 04/19/21 Unknown Rx Haldol 5 mg PO BID 08/26/21 08/26/21 Unknown History Prozac 20 mg PO DAILY 08/26/21 08/26/21 Unknown History ED Physical Exam - General Limitations: Altered Mental Status General appearance: alert, anxious - Head Head exam: Present: atraumatic, normocephalic - Eye Eye exam: Present: normal appearance - ENT ENT exam: Present: mucous membranes moist - Neck Neck exam: Present: normal inspection - Respiratory Respiratory exam: Present: normal lung sounds bilaterally. Absent: respiratory distress - Cardiovascular Cardiovascular Exam: Present: regular rate, normal rhythm. Absent: systolic murmur, diastolic murmur, rubs, gallop - GI/Abdominal GI/Abdominal exam: Present: soft, normal bowel sounds - Extremities Exam Extremities exam: Present: normal inspection - Back Exam Back exam: Present: normal inspection - Neurological Exam Neurological exam: Present: alert, oriented X3 - Psychiatric Psychiatric exam: Present: anxious, flat affect - Skin Skin exam: Present: warm, dry, intact, normal color. Absent: rash ED Course Vital Signs 10/15/21 10/15/21 10/15/21 18:49 19:30 20:00 Temperature 98.9 F 98 F Pulse Rate 78 Respiratory 18 Rate Blood Pressure 116/76 [Left] O2 Sat by Pulse 100 100 100 Oximetry 10/16/21 10/16/21 10:16 18:54 Temperature Pulse Rate 82 Respiratory 18 Rate Blood Pressure 100/52 [Left] O2 Sat by Pulse 99 100 Oximetry ED Medical Decision Making - Lab Data Result diagrams: 10/16/21 10:39 10/16/21 10:39 Critical care attestation.: If time is entered above; I have spent that time in minutes in the direct care of this critically ill patient, excluding procedure time. ED Disposition Clinical Impression: Psychosis Disposition: [address] [place] [address] Is pt being admited?: No Does the pt Need Aspirin: No Condition: Stable Referrals: PRIMARY CARE, [Primary Care Provider] - 3-5 Days
[2021-10-15 22:56] LABS: Basophils # (Auto) 0.1 K/mm3 (0.0-0.1); Eosinophils % (Auto) 0.4 % (0.0-4.3); Hematocrit 36.9 % (30.3-42.9); Hemoglobin 12.3 gm/dl (10.1-14.3); Lymphocytes # (Auto) 2.5 K/mm3 (1.2-5.4); Mean Corpuscular HGB Conc 33 % (30-34); Mean Corpuscular Volume 96 fl (79-97); Monocytes # (Auto) 0.5 K/mm3 (0.0-0.8); Monocytes % (Auto) 5.5 % (0.0-7.3); Platelet Count 315 K/mm3 (140-440); Red Blood Count 3.85 M/mm3 (3.65-5.03); Red Cell Distribution Width 13.5 % (13.2-15.2)
[2021-10-15 23:16] LABS: Alanine Aminotransferase 10 units/L (7-56); Blood Urea Nitrogen 5 mg/dL (7-17); Hemolysis Index 2
[2021-10-15 23:25] LABS: BUN/Creatinine Ratio 8
--- NOTE | 2021-10-16 10:58 | Consultation ---
History of Present Illness - Reason for Consult Consult date: 10/16/21 Reason for consult: psychosis - History of Present Psychiatric Illness HPI: 26 years old with H.O of psychosis and OD , here for evaluation was found by police and was found to be confused , brought in for eval, she is refusing blood work and refusing ot talk to escobar awake and alert but not reponding to us The patient was seen today. She is known to me from previous visits. He is obviously responding to internal stimuli. The patient is guarded. She's refusing to respond. She's staring intensely. Will start olanzapine daily. REVIEW OF SYSTEMS Unable to obtain MENTAL STATUS EXAMINATION Unable to obtain Assessment and Plan (1) Schizophrenia Current Visit: Yes Status: Acute Treatment Plan 1013 Olanzapine 5mg po daily Medical: per primary Disposition: recommend acute psychiatric inpatient treatment. Will follow. Thanks Case staffed with Dr. Mosley Medications and Allergies Allergies Allergy/AdvReac Type Severity Reaction Status Date / Time haloperidol [From Haldol] AdvReac Vomiting Verified 08/27/21 15:10 Home Medications Medication Instructions Recorded Confirmed Last Taken Type Benztropine [Cogentin] 0.5 mg PO BID #60 tab 01/23/21 04/19/21 Unknown Rx Divalproex [Charity COHEN] 500 mg PO BID #60 tablet 01/23/21 04/19/21 Unknown Rx haloperidoL [Haldol] 1 mg PO BID #60 tablet 01/23/21 04/19/21 Unknown Rx traZODone [Desyrel] 50 mg PO QHS #30 tab 01/23/21 04/19/21 Unknown Rx haloperidoL [Haldol] 5 mg PO BID #60 tablet 04/19/21 Unknown Rx Haldol 5 mg PO BID 08/26/21 08/26/21 Unknown History Prozac 20 mg PO DAILY 08/26/21 08/26/21 Unknown History Mental Status Exam - Vital signs Last Vital Signs Temp 98 F 10/15/21 20:00 Pulse 78 10/15/21 20:00 Resp 18 10/15/21 20:00 BP 116/76 10/15/21 20:00 Pulse Ox 100 10/15/21 20:00 Results Result Diagrams: 10/15/21 22:34 10/15/21 22:34 Abnormal lab results 04/25/22 Range/Units 22:34 Sodium 136 L (137-145) mmol/L BUN 5 L (7-17) mg/dL All other labs normal.
[2021-10-16 11:06] LABS: Bacteria,Urine 2+ /HPF (Negative); Bilirubin,Urine NEG (Negative); Blood,Urine NEG (Negative); Color,Urine Yellow (Yellow); Mucus,Urine 3+ /HPF
[2021-10-16 11:08] LABS: HCG Qualitative,Urine Positive (Negative)
[2021-10-16 11:13] LABS: Basophils % (Auto) 0.4 % (0.0-1.8); Eosinophils % (Auto) 0.2 % (0.0-4.3); Hematocrit 38.1 % (30.3-42.9); Hemoglobin 12.6 gm/dl (10.1-14.3); Lymphocytes # (Auto) 1.7 K/mm3 (1.2-5.4); Lymphocytes % (Auto) 27.2 % (13.4-35.0); Mean Corpuscular HGB Conc 33 % (30-34); Mean Corpuscular Volume 96 fl (79-97); Monocytes # (Auto) 0.4 K/mm3 (0.0-0.8); Monocytes % (Auto) 6.6 % (0.0-7.3); Platelet Count 338 K/mm3 (140-440); Red Blood Count 3.97 M/mm3 (3.65-5.03); Red Cell Distribution Width 13.5 % (13.2-15.2)
[2021-10-16 11:21] LABS: Blood Urea Nitrogen 6 mg/dL (7-17); Calcium 9.5 mg/dL (8.4-10.2); Hemolysis Index 11
[2021-10-16 11:24] LABS: BUN/Creatinine Ratio 9
[2021-10-16 11:42] LABS: Amphetamine Screen,Urine Negative; Benzodiazepines Screen,Urine Negative; Methadone Screen,Urine Negative; Opiate Screen,Urine Negative
[2021-10-16 12:00] LABS: Cannabinoid Screen,Urine Positive; Cocaine Screen,Urine Positive
--- NOTE | 2021-10-16 13:35 | Event Note ---
Date: 10/16/21 The patient is seen and examined. She is resting comfortably in her stretcher, and in no acute distress. Nursing team reports no acute issues. Nursing team and psychiatric notes are reviewed and appreciated. It appears that this patient has a positive urine test. Serum quant ordered. Reassess. If quant hCG positive, obtain obstetrics ultrasound. If hCG is positive by quant, start appropriate antibiotics for bacteriuria. Vital Signs 10/15/21 10/15/21 10/15/21 18:49 19:30 20:00 Temperature 98.9 F 98 F Pulse Rate 78 Respiratory 18 Rate Blood Pressure 116/76 [Left] O2 Sat by Pulse 100 100 100 Oximetry 10/16/21 10:16 Temperature Pulse Rate Respiratory Rate Blood Pressure [Left] O2 Sat by Pulse 99 Oximetry Lab Results 10/15/21 10/15/21 10/15/21 Range/Units 22:34 22:34 22:34 WBC 8.7 (4.5-11.0) K/mm3 RBC 3.85 (3.65-5.03) M/mm3 Hgb 12.3 (10.1-14.3) gm/dl Hct 36.9 (30.3-42.9) % MCV 96 (79-97) fl MCH 32 (28-32) pg MCHC 33 (30-34) % RDW 13.5 (13.2-15.2) % Plt Count 315 (140-440) K/mm3 Lymph % (Auto) 29.0 (13.4-35.0) % [place] % (Auto) 5.5 (0.0-7.3) % Eos % (Auto) 0.4 (0.0-4.3) % Baso % (Auto) 1.0 (0.0-1.8) % Lymph # (Auto) 2.5 (1.2-5.4) K/mm3 [place] # (Auto) 0.5 (0.0-0.8) K/mm3 Eos # (Auto) 0.0 (0.0-0.4) K/mm3 Baso # (Auto) 0.1 (0.0-0.1) K/mm3 Seg Neutrophils % 64.1 (40.0-70.0) % Seg Neutrophils # 5.6 (1.8-7.7) K/mm3 Sodium 136 L (137-145) mmol/L Potassium 4.0 (3.6-5.0) mmol/L Chloride 99.8 (98-107) mmol/L Carbon Dioxide 23 (22-30) mmol/L Anion Gap 17 mmol/L BUN 5 L (7-17) mg/dL Creatinine 0.6 (0.6-1.2) mg/dL Estimated GFR > 60 ml/min BUN/Creatinine Ratio 8 % Glucose 83 (65-100) mg/dL Lactic Acid 1.00 (0.7-2.0) mmol/L Calcium 9.0 (8.4-10.2) mg/dL Total Bilirubin 0.30 (0.1-1.2) mg/dL AST 12 (5-40) units/L ALT 10 (7-56) units/L Alkaline Phosphatase 54 (35-129) units/L Total Protein 6.5 (6.3-8.2) g/dL Albumin 4.0 (3.9-5) g/dL Albumin/Globulin Ratio 1.6 % Urine Color (Yellow) Urine Turbidity (Clear) Urine pH (5.0-7.0) Ur Specific [place] (1.003-1.030) Urine Protein (Negative) mg/dL Urine Glucose (UA) (Negative) mg/dL Urine Ketones (Negative) mg/dL Urine Blood (Negative) Urine Nitrite (Negative) Urine Bilirubin (Negative) Urine Urobilinogen (<2.0) mg/dL Ur Leukocyte Esterase (Negative) Urine WBC (Auto) (0.0-6.0) /HPF Urine RBC (Auto) (0.0-6.0) /HPF U Epithel Cells (Auto) (0-13.0) /HPF Urine Bacteria (Auto) (Negative) /HPF Urine WBC Clumps /HPF Urine Mucus /HPF Urine Yeast (Budding) /HPF Urine HCG, Qual (Negative) Salicylates (2.8-20.0) mg/dL Urine Opiates Screen Urine Methadone Screen Acetaminophen (10.0-30.0) ug/mL Ur Barbiturates Screen Ur Phencyclidine Scrn Ur Amphetamines Screen U Benzodiazepines Scrn Urine Cocaine Screen U Marijuana (THC) Screen Drugs of Abuse Note Plasma/Serum Alcohol (0-0.07) % 10/15/21 10/16/21 10/16/21 Range/Units 22:34 10:17 10:17 WBC (4.5-11.0) K/mm3 RBC (3.65-5.03) M/mm3 Hgb (10.1-14.3) gm/dl Hct (30.3-42.9) % MCV (79-97) fl MCH (28-32) pg MCHC (30-34) % RDW (13.2-15.2) % Plt Count (140-440) K/mm3 Lymph % (Auto) (13.4-35.0) % [place] % (Auto) (0.0-7.3) % Eos % (Auto) (0.0-4.3) % Baso % (Auto) (0.0-1.8) % Lymph # (Auto) (1.2-5.4) K/mm3 [place] # (Auto) (0.0-0.8) K/mm3 Eos # (Auto) (0.0-0.4) K/mm3 Baso # (Auto) (0.0-0.1) K/mm3 Seg Neutrophils % (40.0-70.0) % Seg Neutrophils # (1.8-7.7) K/mm3 Sodium (137-145) mmol/L Potassium (3.6-5.0) mmol/L Chloride (98-107) mmol/L Carbon Dioxide (22-30) mmol/L Anion Gap mmol/L BUN (7-17) mg/dL Creatinine (0.6-1.2) mg/dL Estimated GFR ml/min BUN/Creatinine Ratio % Glucose (65-100) mg/dL Lactic Acid (0.7-2.0) mmol/L Calcium (8.4-10.2) mg/dL Total Bilirubin (0.1-1.2) mg/dL AST (5-40) units/L ALT (7-56) units/L Alkaline Phosphatase (35-129) units/L Total Protein (6.3-8.2) g/dL Albumin (3.9-5) g/dL Albumin/Globulin Ratio % Urine Color Yellow (Yellow) Urine Turbidity Turbid (Clear) Urine pH 6.0 (5.0-7.0) Ur Specific [place] 1.023 (1.003-1.030) Urine Protein 100 mg/dl (Negative) mg/dL Urine Glucose (UA) Neg (Negative) mg/dL Urine Ketones 20 (Negative) mg/dL Urine Blood Neg (Negative) Urine Nitrite Neg (Negative) Urine Bilirubin Neg (Negative) Urine Urobilinogen 4.0 (<2.0) mg/dL Ur Leukocyte Esterase Lg (Negative) Urine WBC (Auto) 25.0 H (0.0-6.0) /HPF Urine RBC (Auto) 17.0 (0.0-6.0) /HPF U Epithel Cells (Auto) 6.0 (0-13.0) /HPF Urine Bacteria (Auto) 2+ (Negative) /HPF Urine WBC Clumps 2+ /HPF Urine Mucus 3+ /HPF Urine Yeast (Budding) 1+ /HPF Urine HCG, Qual Positive A (Negative) Salicylates (2.8-20.0) mg/dL Urine Opiates Screen Negative Urine Methadone Screen Negative Acetaminophen (10.0-30.0) ug/mL Ur Barbiturates Screen Negative Ur Phencyclidine Scrn Negative Ur Amphetamines Screen Negative U Benzodiazepines Scrn Negative Urine Cocaine Screen Positive U Marijuana (THC) Screen Positive Drugs of Abuse Note Disclamer Plasma/Serum Alcohol < 0.01 (0-0.07) % 10/16/21 10/16/21 10/16/21 Range/Units 10:39 10:39 10:39 WBC (4.5-11.0) K/mm3 RBC (3.65-5.03) M/mm3 Hgb (10.1-14.3) gm/dl Hct (30.3-42.9) % MCV (79-97) fl MCH (28-32) pg MCHC (30-34) % RDW (13.2-15.2) % Plt Count (140-440) K/mm3 Lymph % (Auto) (13.4-35.0) % [place] % (Auto) (0.0-7.3) % Eos % (Auto) (0.0-4.3) % Baso % (Auto) (0.0-1.8) % Lymph # (Auto) (1.2-5.4) K/mm3 [place] # (Auto) (0.0-0.8) K/mm3 Eos # (Auto) (0.0-0.4) K/mm3 Baso # (Auto) (0.0-0.1) K/mm3 Seg Neutrophils % (40.0-70.0) % Seg Neutrophils # (1.8-7.7) K/mm3 Sodium 136 L (137-145) mmol/L Potassium 4.5 (3.6-5.0) mmol/L Chloride 101.8 (98-107) mmol/L Carbon Dioxide 23 (22-30) mmol/L Anion Gap 16 mmol/L BUN 6 L (7-17) mg/dL Creatinine 0.7 (0.6-1.2) mg/dL Estimated GFR > 60 ml/min BUN/Creatinine Ratio 9 % Glucose 109 H (65-100) mg/dL Lactic Acid (0.7-2.0) mmol/L Calcium 9.5 (8.4-10.2) mg/dL Total Bilirubin (0.1-1.2) mg/dL AST (5-40) units/L ALT (7-56) units/L Alkaline Phosphatase (35-129) units/L Total Protein (6.3-8.2) g/dL Albumin (3.9-5) g/dL Albumin/Globulin Ratio % Urine Color (Yellow) Urine Turbidity (Clear) Urine pH (5.0-7.0) Ur Specific [place] (1.003-1.030) Urine Protein (Negative) mg/dL Urine Glucose (UA) (Negative) mg/dL Urine Ketones (Negative) mg/dL Urine Blood (Negative) Urine Nitrite (Negative) Urine Bilirubin (Negative) Urine Urobilinogen (<2.0) mg/dL Ur Leukocyte Esterase (Negative) Urine WBC (Auto) (0.0-6.0) /HPF Urine RBC (Auto) (0.0-6.0) /HPF U Epithel Cells (Auto) (0-13.0) /HPF Urine Bacteria (Auto) (Negative) /HPF Urine WBC Clumps /HPF Urine Mucus /HPF Urine Yeast (Budding) /HPF Urine HCG, Qual (Negative) Salicylates < 0.3 L (2.8-20.0) mg/dL Urine Opiates Screen Urine Methadone Screen Acetaminophen 5.0 L (10.0-30.0) ug/mL Ur Barbiturates Screen Ur Phencyclidine Scrn Ur Amphetamines Screen U Benzodiazepines Scrn Urine Cocaine Screen U Marijuana (THC) Screen Drugs of Abuse Note Plasma/Serum Alcohol (0-0.07) % 10/16/21 10/16/21 Range/Units 10:39 10:39 WBC 6.3 (4.5-11.0) K/mm3 RBC 3.97 (3.65-5.03) M/mm3 Hgb 12.6 (10.1-14.3) gm/dl Hct 38.1 (30.3-42.9) % MCV 96 (79-97) fl MCH 32 (28-32) pg MCHC 33 (30-34) % RDW 13.5 (13.2-15.2) % Plt Count 338 (140-440) K/mm3 Lymph % (Auto) 27.2 (13.4-35.0) % [place] % (Auto) 6.6 (0.0-7.3) % Eos % (Auto) 0.2 (0.0-4.3) % Baso % (Auto) 0.4 (0.0-1.8) % Lymph # (Auto) 1.7 (1.2-5.4) K/mm3 [place] # (Auto) 0.4 (0.0-0.8) K/mm3 Eos # (Auto) 0.0 (0.0-0.4) K/mm3 Baso # (Auto) 0.0 (0.0-0.1) K/mm3 Seg Neutrophils % 65.6 (40.0-70.0) % Seg Neutrophils # 4.1 (1.8-7.7) K/mm3 Sodium (137-145) mmol/L Potassium (3.6-5.0) mmol/L Chloride (98-107) mmol/L Carbon Dioxide (22-30) mmol/L Anion Gap mmol/L BUN (7-17) mg/dL Creatinine (0.6-1.2) mg/dL Estimated GFR ml/min BUN/Creatinine Ratio % Glucose (65-100) mg/dL Lactic Acid (0.7-2.0) mmol/L Calcium (8.4-10.2) mg/dL Total Bilirubin (0.1-1.2) mg/dL AST (5-40) units/L ALT (7-56) units/L Alkaline Phosphatase (35-129) units/L Total Protein (6.3-8.2) g/dL Albumin (3.9-5) g/dL Albumin/Globulin Ratio % Urine Color (Yellow) Urine Turbidity (Clear) Urine pH (5.0-7.0) Ur Specific [place] (1.003-1.030) Urine Protein (Negative) mg/dL Urine Glucose (UA) (Negative) mg/dL Urine Ketones (Negative) mg/dL Urine Blood (Negative) Urine Nitrite (Negative) Urine Bilirubin (Negative) Urine Urobilinogen (<2.0) mg/dL Ur Leukocyte Esterase (Negative) Urine WBC (Auto) (0.0-6.0) /HPF Urine RBC (Auto) (0.0-6.0) /HPF U Epithel Cells (Auto) (0-13.0) /HPF Urine Bacteria (Auto) (Negative) /HPF Urine WBC Clumps /HPF Urine Mucus /HPF Urine Yeast (Budding) /HPF Urine HCG, Qual (Negative) Salicylates (2.8-20.0) mg/dL Urine Opiates Screen Urine Methadone Screen Acetaminophen (10.0-30.0) ug/mL Ur Barbiturates Screen Ur Phencyclidine Scrn Ur Amphetamines Screen U Benzodiazepines Scrn Urine Cocaine Screen U Marijuana (THC) Screen Drugs of Abuse Note Plasma/Serum Alcohol < 0.01 (0-0.07) % EARLY OBSTETRICAL ULTRASOUND INDICATION: COMPARISON: None pertinent available TECHNIQUE: Transabdominal FINDINGS: Uterus measures 10.3 cm in length. In the endometrial canal in the fundus a small gestational sac is seen with double wall sign. No internal contents are seen and no cardiac activity was noted. By sac size gestational age would correlate to 5 weeks 3 days. Clinical dating is unknown. Left ovary measures 3.3 cm in length and the right ovary measures 4.3 cm in length. No adnexal masses are seen. No free fluid is noted. IMPRESSION: Early intrauterine gestational sac is noted but I cannot confirm viability. Follow-up is needed. Signer Name: Luke Peres MD Signed: 10/16/2021 2:59 PM Workstation Name: [id number] IUP confirmed Start Keflex. Start multivitamins. Patient remains suitable for psychiatric disposition.
[2021-10-16] MEDS ORDERED: cephALEXin 500 MG CAP PO ONE (14:34)
--- NOTE | 2021-10-16 16:03 | Ultrasound Report ---
EARLY OBSTETRICAL ULTRASOUND INDICATION: COMPARISON: None pertinent available TECHNIQUE: Transabdominal FINDINGS: Uterus measures 10.3 cm in length. In the endometrial canal in the fundus a small gestation al sac is seen with double wall sign. No internal contents are seen and no cardiac activity was noted . By sac size gestational age would correlate to 5 weeks 3 days. Clinical dating is unknown. Left ovary measures 3.3 cm in length and the right ovary measures 4.3 cm in length. No adnexal masses are seen. No free fluid is noted. IMPRESSION: Early intrauterine gestational sac is noted but I cannot confirm viability. Follow-up is needed. Signer Name: Luke Peres MD Signed: 10/16/2021 3:59 PM Workstation Name: [id number]
[2021-10-16] MEDS: PRENATAL VIT27-FE FUMARATE-FOLIC ACID VIT TAB PO SCH (17:51)
[2021-10-17] MEDS: PRENATAL VIT27-FE FUMARATE-FOLIC ACID VIT TAB PO SCH (10:39)
--- NOTE | 2021-10-17 11:34 | Progress Note ---
Subjective - Reason for Consult Consult date: 10/17/21 Reason for consult: psychosis - Chief Complaint Chief complaint: The patient is awake, and alert but refusing to speak. She is obviously responding to internal stimuli. She is staring intensely and smiling. Will adjust Olanzapine, REVIEW OF SYSTEMS Unable to obtain MENTAL STATUS EXAMINATION Unable to obtain Assessment and Plan (1) Schizophrenia Current Visit: Yes Status: Acute Treatment Plan 1013 Increase Olanzapine 7.5mg po daily Medical: per primary Disposition: recommend acute psychiatric inpatient treatment. Will follow. Thanks Case staffed with Dr. Mosley Mental Status Exam - Vital signs Last Vital Signs Temp 98 F 10/15/21 20:00 Pulse 82 10/16/21 18:54 Resp 18 10/16/21 18:54 BP 100/52 10/16/21 18:54 Pulse Ox 100 10/16/21 18:54
--- NOTE | 2021-10-18 09:44 | Progress Note ---
Subjective - Reason for Consult Consult date: 10/18/21 Reason for consult: psychosis - Chief Complaint Chief complaint: The patient is seen today. She is more talkative today, but rude and easily irritable. She says she was "not expecting to be back here this long." The patient denies SI/HI. The patient says "I'm fine and I'm not depressed." She appears angry. I ask the patient why was she upset. She states "I'm not upset. I'm just tired of being back here and everybody is saying something different." The patient denies hallucinations of any kind. I ask the patient if she felt safe going home, she snaps, "good, please send me home." Will send the patient home with script for olanzapine to maintain her mental health. She is to follow up with outpatient psychiatry and OB in 7 to 14 days upon discharge. Olanzapine was held this morning due to nurse stating she's uncomfortable giving it. REVIEW OF SYSTEMS Constitutional: Negative for weight loss ENT: Negative for stridor Respiratory: Negative for cough or hemoptysis All other systems reviewed and are negative MENTAL STATUS EXAMINATION General Appearance and Behavior: Age appropriate, good hygiene, wearing appropriate clothes, good eye contact, irritable, rude Cooperation: Participating Psychomotor Behavior: Psychomotor normal Mood: irritable Affect and affective range: congruent with stated mood Thought Process: Goal directed Thought Content: None Speech: Normal tone and pace Suicidal Ideation: Denies Homicidal Ideation: Denies Hallucinations: Denies Delusions: None elicited Impulse Control: Limited Insight and Judgment: Limited insight and judgment Memory: Limited Attention: attentive Orientation: Alert, oriented Assessment and Plan (1) Schizophrenia Treatment Plan d/c 1013 Olanzapine 7.5mg po daily Medical: per primary Disposition: Do not recommend acute psychiatric inpatient treatment. The roller cleaner to provide the patient with all necessary outpatient resources Will sign off. Thanks Case staffed with Dr. Mosley Mental Status Exam - Vital signs Last Vital Signs Temp 99.1 F 10/17/21 20:28 Pulse 90 10/17/21 20:28 Resp 16 10/17/21 20:28 BP 114/71 10/17/21 20:28 Pulse Ox 98 10/18/21 05:36
[2021-10-18 11:11] VITALS: BP 109/66
== END 2021-10-18 11:56 | disposition home or self-care (01) ==
LOC: ED 17:41 → EEVIPCON 17:41 → ED 10-18 11:56
DX: O99.341 Other mental disorders complicating pregnancy, first trimester (principal); F29 Unspecified psychosis not due to a substance or known physiological condition; F20.9 Schizophrenia, unspecified; Z20.822 Contact with and (suspected) exposure to COVID-19; Z88.8 Allergy status to other drugs, medicaments and biological substances; Z79.899 Other long term (current) drug therapy; Z3A.01 Less than 8 weeks gestation of pregnancy
CPT/HCPCS: 36415; 76801; 80048; 80053; 80307; 81001; 81025; 82140; 84702; 85025; 87086; 99285; U0003; 80320; G0480